=== PATIENT | female | born 2000 | race African-American/Black ===

== ENCOUNTER 2021-03-12 23:40 | Emergency (ER) | payer BC, MEDICAID | END 2021-03-13 00:18 | disposition home or self-care (01) | LOC: NAV ERS 23:40 | DX: Z20.822 Contact with and (suspected) exposure to COVID-19 (principal) | CPT/HCPCS: 99283; U0003; U0005 ==

== ENCOUNTER 2025-01-15 17:58 | Emergency (ER) | payer BC | END 2025-01-15 19:20 | disposition short-term general hospital (02) | LOC: NAV ERS 17:58 | DX: O9A.219 Injury, poisoning and certain other consequences of external causes complicating pregnancy, unspecified trimester (principal); S39.91XA Unspecified injury of abdomen, initial encounter; Z3A.00 Weeks of gestation of pregnancy not specified | CPT/HCPCS: 99285 ==